=== PATIENT | female | born 1970 | race Caucasian/White ===

== ENCOUNTER 2017-01-06 19:44 | Emergency (ER) | payer SELFPAY ==
[~2017-01-06] VITALS: Ht 170.2 cm; Wt 142.0 kg
[~2017-01-06 19:44] MED LIST: AMLO5TAB22 PO; ESTRTAB6 PO
[2017-01-06 20:07] VITALS: BP 163/104; PULSE 113; RESP 18; TEMP 98.6; O2SAT 95
[2017-01-06] MEDS ORDERED: ESTRTAB11 PO (20:26)
[2017-01-06] MEDS ORDERED: AMLO5TAB2 PO (20:26)
[2017-01-06] MEDS ORDERED: METF500T PO (20:26)
--- NOTE | 2017-01-06 20:32 | PD ---
HPI Chief Complaint: Cold / Flu Symptoms Time Seen by Provider: 20:32 Travel History International Travel<30 days: No Contact w/Intl Traveler<30days: No Traveled to known affect area: No History of Present Illness HPI 46-year-old female presents with 3 day history of and increasing upper respiratory symptoms including fever, headache, postnasal drip, sore throat, and cough. Patient denies wheezing in the chest. She is sore across the chest from coughing. She states decreased appetite and mild nausea but no vomiting or diarrhea. Patient has had exposure to illness with a coworker. She states her temperature reached 101 today. She has no known drug allergies. PFSH Past Medical History Anemia: Yes Blood Disorders: No Cancer: No Cardiac Catheterization: Yes Cardiovascular Problems: Yes High Cholesterol: Yes Chest Pain: Yes Diabetes: Yes Patient Takes Glucophage: Yes (0630 01-06-17) Diminished Hearing: No Endocrine: Yes GERD: Yes Genitourinary: No Headaches: Yes Hypertension: Yes Immune Disorder: No Kidney Stones: Yes Musculoskeletal: No Neurologic: No Psychiatric: No Reproductive: Yes (INCREASED ESTROGEN LEVELS) Respiratory: No Immunizations Current: Yes Tetanus Vaccination: > 5 Years Influenza Vaccination: No ?: Not : 0 Para: 0 Miscarriage: 0 : 0 Ovarian Cysts: Yes Dilation and Curettage (D&C): Yes (ABLATION) Past Surgical History Ear Surgery: Yes Gynecologic Surgery: Yes (ENDOMETRIAL ABLATION) Tonsillectomy: Yes Tympanostomy Tube: Yes Other Surgery: Yes Social History Alcohol Use: No Tobacco Use: No Substance Use: No Allergies-Medications (Allergen,Severity, Reaction): Coded Allergies: No Known Allergies (Verified , 01/06/17) Reported Meds & Prescriptions Reported Meds & Active Scripts Active Tessalon Perles (Benzonatate) 100 Mg Cap 100 Mg PO TID PRN Flonase Allergy Relief Children Nasal Ovalo (Fluticasone Nasal Ovalo) 50 Mcg/ Act Ovalo 2 Ovalo EACH NARE DAILY 50 mcg/spray Amoxicillin 875 Mg Tab 875 Mg PO BID Reported Estroven Nighttime (Nutritional Formula) 1 Tab 1 Tab PO HS Metformin (Metformin HCl) 500 Mg Tab 500 Mg PO DAILY With a meal Amlodipine (Amlodipine Besylate) 5 Mg Tab 5 Mg PO DAILY Review of Systems Except as stated in HPI: all other systems reviewed are Neg General / Constitutional: Positive: Fever, Chills Eyes: No: Visual changes HENT: Positive: Headaches, Sore Throat, Rhinitis, Rhinorrhea, Congestion, No: Nosebleed, Neck Stiffness, Neck Pain, Dental Difficulties, Ear Discharge, Earache Cardiovascular: No: Chest Pain or Discomfort Respiratory: Positive: Cough, No: Shortness of Breath, Wheezing, Sneezing, Orthopnea, Hemoptysis, Night Sweats, Pleuritic Pain Gastrointestinal: Positive: Nausea, No: Vomiting, Diarrhea, Abdominal Pain Genitourinary: No: Dysuria Musculoskeletal: No: Pain Skin: No Rash Neurologic: No: Weakness Psychiatric: No: Depression Endocrine: No: Polydipsia Hematologic/Lymphatic: No: Easy Bruising Physical Exam Narrative GENERAL: Patient appears ill but not septic. SKIN: Warm and dry. Normal color. Normal turgor. No rash. HEAD: Atraumatic. Normocephalic. EYES: Pupils equal and round. No scleral icterus. No injection or drainage. ENT: No nasal bleeding or discharge. Mucous membranes pink and moist. Patient has moderate sinus tenderness with percussion in both frontal and maxillary sinuses. TMs are somewhat dull bilaterally with no injection. Posterior pharynx has cobblestoning and erythema with postnasal drip present NECK: Trachea midline. Supple and nontender. CARDIOVASCULAR: Regular rate and rhythm. RESPIRATORY: No accessory muscle use. Clear to auscultation. Breath sounds equal bilaterally. GASTROINTESTINAL: Abdomen soft, non-tender, nondistended. Hepatic and splenic margins not palpable. MUSCULOSKELETAL: Extremities without clubbing, cyanosis, or edema. No obvious deformities. NEUROLOGICAL: Awake and alert. No obvious cranial nerve deficits. Motor grossly within normal limits. Five out of 5 muscle strength in the arms and legs. Normal speech. PSYCHIATRIC: Appropriate mood and affect; insight and judgment normal. Data Data Last Documented VS Vital Signs Date Time Temp Pulse Resp B/P Pulse Ox O2 Delivery O2 Flow Rate FiO2 01/06/17 20:27 95 Room Air 01/06/17 20:07 98.6 113 18 163/104 Orders Amoxicillin (Trimox) (01/06/17 20:45) Ibuprofen (Motrin) (01/06/17 20:45) MDM Medical Decision Making Medical Screen Exam Complete: Yes Emergency Medical Condition: Yes Differential Diagnosis Upper respiratory infection. Febrile illness. Sinusitis. Postnasal drip. Cough. Narrative Course Patient is felt to have acute sinusitis. Patient is given amoxicillin 875 by mouth 1. Patient is given ibuprofen 800 mg by mouth. Patient will be continued on amoxicillin 875 twice a day 10 days. Patient is given Flonase nasal spray 2 sprays each nostril daily. Patient is given Tessalon Perles 100 mg one every 8 hours when necessary cough. Patient can use [id number]-doytnyl cough medications as necessary. Patient is given a work note. Patient should follow with her primary care physician or return to emergency department if symptoms do not improve or worsen as discussed. Diagnosis Primary Impression: Acute pansinusitis Qualified Code: J01.40 - Acute non-recurrent pansinusitis Referrals: Primary Care Physician Patient Instructions: General Instructions Departure Forms: Work Release Enter return to work date: Jan 08, 2017 Additional Instructions: Patient will be continued on amoxicillin 875 twice a day 10 days. Patient is given Flonase nasal spray 2 sprays each nostril daily. Patient is given Tessalon Perles 100 mg one every 8 hours when necessary cough. Patient can use [id number] cough medications as necessary. Patient is given a work note. Patient should follow with her primary care physician or return to emergency department if symptoms do not improve or worsen as discussed. Med/Other Pt SpecificInfo: Prescription(s) given Scripts Benzonatate (Tessalon Perles)100 Mg [id number] Mg PO TID PRN (COUGH) #30 CAP Ref 0 Prov:Swati Hurley MD 01/06/17 Fluticasone Nasal Ovalo (Flonase Allergy Relief Children Nasal Ovalo)50 Mcg/Act Spray2 Ovalo EACH NARE DAILY #1 BOTTLE 50 mcg/spray Prov:Swati Hurley MD 01/06/17 Amoxicillin 875 Mg [id number] Mg PO BID #20 TAB Prov:Swati Hurley MD 01/06/17 Disposition: DISCHARGE HOME Condition: Stable Von Sorto Jan 06, 2017 20:32
[2017-01-06] MEDS ORDERED: IBUPROFEN 800 MG TAB PO ONE (20:45)
[2017-01-06] MEDS ORDERED: AMOXICILLIN 875 MG TAB PO ONE (20:45)
[2017-01-06] MEDS ORDERED: BENZ100 PO (20:51)
[2017-01-06] MEDS ORDERED: AMOX875T PO (20:51)
[2017-01-06] MEDS ORDERED: FLUT1SPR9 EACH NARE (20:51)
== END 2017-01-06 20:55 | disposition home or self-care (01) ==
LOC: PHEFT 19:44
DX: J01.40 Acute pansinusitis, unspecified (principal); R51 Headache; J02.9 Acute pharyngitis, unspecified; R11.0 Nausea; E11.9 Type 2 diabetes mellitus without complications; I10 Essential (primary) hypertension
CPT/HCPCS: 99283

== ENCOUNTER 2017-03-05 18:58 | Emergency (ER) | payer SELFPAY ==
[~2017-03-05] VITALS: Ht 170.2 cm; Wt 144.0 kg
[~2017-03-05 18:58] MED LIST changes: +AMLO5TAB2 PO; -AMLO5TAB22 PO; +AMOX875T PO; +BENZ100 PO; +ESTRTAB11 PO; -ESTRTAB6 PO; +FLUT1SPR9 EACH NARE; +METF500T PO
[2017-03-05 20:02] VITALS: BP 158/96; PULSE 109; RESP 18; TEMP 99.4; O2SAT 97
[2017-03-05] MEDS ORDERED: MELA1TAB16 PO (20:12)
--- NOTE | 2017-03-05 20:58 | PD ---
HPI Chief Complaint: Skin Problem Time Seen by Provider: 20:30 Travel History International Travel<30 days: No Contact w/Intl Traveler<30days: No Traveled to known affect area: No History of Present Illness HPI 46-year-old female presents emergency department for evaluation of possible abscess left posterior thigh 3 days. She reports over the last 3 days the area has become increasingly more painful, nonradiating, worse with sitting and and movement, relieved with rest. Severity 7 out of 10. She denies fever, chills, nausea, vomiting. She reports her diabetes is well controlled with metformin. No change in blood sugars. PFSH Past Medical History Anemia: Yes Blood Disorders: No Cancer: No Cardiac Catheterization: Yes Cardiovascular Problems: Yes High Cholesterol: Yes Chest Pain: Yes Diabetes: Yes Patient Takes Glucophage: Yes Diminished Hearing: No Endocrine: Yes GERD: Yes Genitourinary: No Headaches: Yes Hypertension: Yes Immune Disorder: No Kidney Stones: Yes Musculoskeletal: No Neurologic: No Psychiatric: No Reproductive: Yes (INCREASED ESTROGEN LEVELS) Respiratory: No Immunizations Current: Yes Tetanus Vaccination: > 5 Years Influenza Vaccination: No ?: Not LMP: Ended 02/19/17 : 0 Para: 0 Miscarriage: 0 : 0 Ovarian Cysts: Yes Dilation and Curettage (D&C): Yes (Uterine ablation ) Past Surgical History Ear Surgery: Yes Gynecologic Surgery: Yes (ENDOMETRIAL ABLATION) Tonsillectomy: Yes Tympanostomy Tube: Yes Other Surgery: Yes Social History Alcohol Use: No Tobacco Use: No Substance Use: No Allergies-Medications (Allergen,Severity, Reaction): Coded Allergies: No Known Allergies (Verified , 03/05/17) Reported Meds & Prescriptions Reported Meds & Active Scripts Active Reported Estroven Nighttime 2 mg (Melatonin-Black Cohosh-Soy Iso) 1 Tab Tab 1 Tab PO HS Metformin (Metformin HCl) 500 Mg Tab 500 Mg PO DAILY With a meal Amlodipine (Amlodipine Besylate) 5 Mg Tab 5 Mg PO DAILY Review of Systems Except as stated in HPI: all other systems reviewed are Neg Skin: Positive Other (abscess left posterior thigh) Physical Exam Narrative GENERAL: Well-nourished, well-developed patient. SKIN: Focused skin assessment warm/dry. Early abscess left upper thigh HEAD: Normocephalic. EYES: No scleral icterus. No injection or drainage. NECK: Supple, trachea midline. No JVD or lymphadenopathy. CARDIOVASCULAR: Regular rate and rhythm without murmurs, gallops, or rubs. RESPIRATORY: Breath sounds equal bilaterally. No accessory muscle use. GASTROINTESTINAL: Abdomen soft, non-tender, nondistended. MUSCULOSKELETAL: No cyanosis, or edema. Left le x 3 cm area of erythema and induration with a central scab left upper thigh. No fluctuance. No drainage. No surrounding cellulitis or lymphangitis. BACK: Nontender without obvious deformity. No CVA tenderness. Data Data Last Documented VS Vital Signs Date Time Temp Pulse Resp B/P Pulse Ox O2 Delivery O2 Flow Rate FiO2 03/05/17 20:02 99.4 109 18 158/96 97 MDM Medical Decision Making Medical Screen Exam Complete: Yes Emergency Medical Condition: Yes Differential Diagnosis Abscess, cellulitis, Narrative Course 46-year-old female presents emergency department for evaluation of possible abscess left posterior thigh 3 days. Patient denies fever, chills. On exam patient is found to have a early abscess. The area is indurated without fluctuance. He does have a central scab without drainage. Do not believe I&D at this time would be beneficial. Patient be placed on antibiotics instructed to apply warm compresses follow-up for recheck in one to 2 days. Diagnosis Primary Impression: Abscess Referrals: Primary Care Physician Additional Instructions: Taking antibiotics as prescribed. Plan warm compresses to the area daily. Follow-up with her primary care doctor for recheck in one to 2 days or return to emergency department if he developed no worsening symptoms. Scripts Clindamycin 300 Mg [id number] Mg PO Q6H #40 CAP Ref 0 Prov:Tabitha Moreno 03/05/17 Disposition: 01 DISCHARGE HOME Condition: Stable Tabitha Moreno Mar 05, 2017 20:58
[2017-03-05] MEDS ORDERED: CLIN1CAP6 PO (21:08)
[2017-03-05] MEDS ORDERED: KETOROLAC TROMETHAMINE 60 MG/2 ML (IM) VIAL IM ONE (21:15)
== END 2017-03-05 21:20 | disposition home or self-care (01) ==
LOC: PHED 18:58 → PHEFT 21:20
DX: L02.416 Cutaneous abscess of left lower limb (principal); E78.00 Pure hypercholesterolemia, unspecified; D64.9 Anemia, unspecified; I10 Essential (primary) hypertension; E11.9 Type 2 diabetes mellitus without complications; K21.9 Gastro-esophageal reflux disease without esophagitis
CPT/HCPCS: 96372; 99284; J1885

== ENCOUNTER 2018-01-13 12:28 | Emergency (ER) | payer SELFPAY ==
[~2018-01-13] VITALS: Ht 170.2 cm; Wt 146.0 kg
[~2018-01-13 12:28] MED LIST changes: -AMOX875T PO; -BENZ100 PO; +CLIN300C5 PO; -ESTRTAB11 PO; -FLUT1SPR9 EACH NARE; +MELA1TAB16 PO
[2018-01-13 12:39] VITALS: BP 160/74; PULSE 91; RESP 18; TEMP 98.4; O2SAT 97
[2018-01-13] MEDS ORDERED: CLIN300C5 PO (13:25)
[2018-01-13] MEDS ORDERED: MUPI2OIN TOPICAL (13:25)
--- NOTE | 2018-01-13 13:29 | PD ---
HPI Chief Complaint: Skin Problem Time Seen by Provider: 13:04 Travel History International Travel<30 days: No Contact w/Intl Traveler<30days: No Traveled to known affect area: No History of Present Illness HPI Patient comes emergency department complaining of a burning painful rash bilateral lower extremities ongoing for 2 weeks. Patient denies any known injury. Denies anything making it better or worse. Patient reports she does not shave her legs but uses Adam but stopped doing this since the rash started. Patient denies being around anyone else with similar, fevers, weight loss, new allergen exposures, bruising, bleeding, or previous episodes like this. Denies any radiation of the pain. Severity mild. PFSH Past Medical History Anemia: Yes Blood Disorders: No Cancer: No Cardiac Catheterization: Yes Cardiovascular Problems: Yes High Cholesterol: Yes Chest Pain: Yes Diabetes: Yes Patient Takes Glucophage: Yes Diminished Hearing: No Endocrine: Yes GERD: Yes Genitourinary: No Headaches: Yes Hypertension: Yes Immune Disorder: No Kidney Stones: Yes Musculoskeletal: No Neurologic: No Psychiatric: No Reproductive: Yes (INCREASED ESTROGEN LEVELS) Respiratory: No Immunizations Current: Yes Tetanus Vaccination: > 5 Years Influenza Vaccination: No ?: Not LMP: LAST WEEK : 0 Para: 0 Miscarriage: 0 : 0 Ovarian Cysts: Yes Dilation and Curettage (D&C): Yes (Uterine ablation ) Past Surgical History Ear Surgery: Yes Gynecologic Surgery: Yes (ENDOMETRIAL ABLATION) Tonsillectomy: Yes Tympanostomy Tube: Yes Other Surgery: Yes Social History Alcohol Use: No Tobacco Use: No Substance Use: No Allergies-Medications (Allergen,Severity, Reaction): Coded Allergies: No Known Allergies (Verified Adverse Reaction, Unknown, 01/13/18) Reported Meds & Prescriptions Reported Meds & Active Scripts Active Mupirocin Topical (Mupirocin) 2 % Oint 1 Applic TOPICAL BID Clindamycin (Clindamycin HCl) 300 Mg Cap 300 Mg PO Q6H Reported Metformin (Metformin HCl) 500 Mg Tab 500 Mg PO DAILY With a meal Amlodipine (Amlodipine Besylate) 5 Mg Tab 5 Mg PO DAILY Review of Systems Except as stated in HPI: all other systems reviewed are Neg Physical Exam Narrative GENERAL: Well-developed, overly nourished, in no acute distress, and non-ill appearing. SKIN: Multiple small tiny yellowish crusted lesions noted bilateral lower extremities distal to the knee. There is no drainage, crepitus, fluctuation, or surrounding erythematous. Patient reports tenderness to palpation. Appears mild folliculitis. HEAD: Atraumatic. Normocephalic. EYES: Pupils equal and round. EOMI. No scleral icterus. No injection or drainage. ENT: No nasal bleeding or discharge. Mucous membranes pink and moist. NECK: Trachea midline. Supple. No nuclear rigidity. RESPIRATORY: No accessory muscle use. No respiratory distress. MUSCULOSKELETAL: No obvious deformities. No clubbing. No cyanosis. No edema. Full range of motion. NEUROLOGICAL: Awake and alert. No obvious cranial nerve deficits. Motor grossly within normal limits. Normal speech. PSYCHIATRIC: Appropriate mood and affect; insight and judgment normal. Data Data Last Documented VS Vital Signs Date Time Temp Pulse Resp B/P (MAP) Pulse Ox O2 Delivery O2 Flow Rate FiO2 01/13/18 12:39 98.4 91 18 160/74 (102) 97 Orders Orders Ed Discharge Order (01/13/18 13:29) MDM Medical Decision Making Medical Screen Exam Complete: Yes Emergency Medical Condition: Yes Differential Diagnosis Cellulitis, folliculitis, impetigo, scabies Narrative Course The patient looks great and was non-ill appearing. There was no evidence to suggest scabies, cellulitis, abscess, Staph. Scalded Skin Syndrome, Toxic Shock , Toxic Epidermal necrolysis, Kawasaki, Measles, Rubella, cutaneous T cell lymphoma, Erythema Multiforme (minor or major). Rash appears mild folliculitis. Skin prescription for clindamycin and topical mupirocin cream. Plan of care was discussed with the patient and the patient is to follow up with their physician. The patient agreed with plan. Patient in no obvious distress upon re-evaluation. Patient was asked if they wanted to speak to my attending, which the patient did not wish to do at this time. Any questions/concerns in reference to patient diagnosis/condition discussed and clarified prior to patient's discharge. Reinforced sheer importance of close follow up with patient's primary physician or primary care clinic and/or supervisor [employer]. Instructed patient to return to ED immediately, if symptoms return/worsen. Patient showed understanding of above instructions. Further instructions and recommendations were detailed in discharge paperwork. Patient ambulated without difficulty out of ED at discharge. Diagnosis Primary Impression: Folliculitis Referrals: [facility] Patient Instructions: Folliculitis (ED), General Instructions Additional Instructions: Follow-up with your primary care physician and/or supervisor [employer] next week for reevaluation. Take all medication as prescribed. Return to the emergency department if symptoms get worse. Med/Other Pt SpecificInfo: Prescription(s) given Scripts Mupirocin Topical (Mupirocin Topical) 2 % Oint 1 APPLIC TOPICAL BID for Mgmt Bacterial Infection, #1 TUBE 0 Refills Prov: Dacia Sullivan MD 01/13/18 Clindamycin (Clindamycin) 300 Mg Cap 300 MG PO Q6H for Infection, #40 CAP 0 Refills Prov: Dacia Sullivan MD 01/13/18 Disposition: 01 DISCHARGE HOME Condition: Stable Ashish Dinh January 13, 2018 13:29
== END 2018-01-13 13:44 | disposition home or self-care (01) ==
LOC: PHEFT 12:28
DX: L73.9 Follicular disorder, unspecified (principal); D64.9 Anemia, unspecified; E78.00 Pure hypercholesterolemia, unspecified; E11.9 Type 2 diabetes mellitus without complications; I10 Essential (primary) hypertension; K21.9 Gastro-esophageal reflux disease without esophagitis; Z87.442 Personal history of urinary calculi; Z79.899 Other long term (current) drug therapy
CPT/HCPCS: 99283

== ENCOUNTER 2018-04-28 10:10 | Observation (INO) ==
--- NOTE | 2018-04-28 11:09 | XR ---
EXAM DATE: 04/28/2018 11:05 AM EDT AGE/SEX: 47 years / Female INDICATIONS: Chest pain. CLINICAL DATA: This is the patient's initial encounter. Patient reports that signs and symptoms have been present for 1 day and indicates a pain score of 6/10. MEDICAL/SURGICAL HISTORY: Hypertension. Hypercholesterolemia. Diabetes mellitus type II. None . COMPARISON: [facility], CHEST SINGLE AP, 06/11/2016. . FINDINGS: A single AP view of the chest demonstrates the lungs to be symmetrically hypoinflated without evidenc e of mass, infiltrate or effusion. The cardiomediastinal contours are unremarkable. Osseous structu res are intact. CONCLUSION: Hypoinflation with no acute cardiopulmonary process. Electronically signed by: Gregorio Trevino MD 04/28/2018 11:08 AM EDT
--- NOTE | 2018-04-28 11:18 | ED ---
HPI General Chief Complaint: Chest Pain Stated Complaint: chest/back pain Time Seen by Provider: 04/28/18 10:49 Source: patient Mode of arrival: ambulatory Limitations: no limitations History of Present Illness HPI narrative: Patient is a 47-year-old female presenting to emerge from for evaluation of chest pain. Patient states the pain is in the middle of her chest radiating to the left, sometimes to the right and to her back. Patient reports it is pressure-like in nature, she states her pain is a 5 out of 10, pain started 2 days ago. Patient reports that she feels as if she cannot catch her breath. She also reports nausea and intermittent headache. She denies any diaphoresis, vomiting, abdominal pain, dysuria. She states that she feels weak. Symptom onset was gradual, symptoms are moderate in nature. There are no alleviating or exacerbating factors. Patient reports a medical history significant for hypertension and type 2 diabetes. Patient states her diabetes is well-controlled, her last A1c was 6.1%. Patient does not have a primary doctor, her medications are prescribed by the physician that she works for a [employer]. Patient denies any tobacco use. She states her father at 70 of congestive heart failure, she had an uncle that at 39 from a heart attack. MD complaint: chest pain Complete Quality Measures for STEMI Alert Patients STEMI Alert: No Onset (ago): day(s) (2) Duration: constant and progressively worsening Onset: during rest and during exertion Pain location: substernal, left chest and right chest Severity: moderate Severity scale (1-10): 5 Quality: heaviness Pain radiation: back Relieving factors: nothing Exacerbating factors: nothing Associated symptoms: nausea and dyspnea Treatments prior to arrival chest pain: none Related Data Home Medications Medication Instructions Recorded Confirmed amlodipine 5 mg PO DAILY 04/28/18 04/28/18 metformin 500 mg PO DAILY 04/28/18 04/28/18 Allergies Allergy/AdvReac Type Severity Reaction Status Date / Time No Known Allergies Allergy Unverified 04/28/18 10:38 Review of Systems ROS: all other systems reviewed are negative [facility] Medical History Medical History Diabetes (Acute) HTN (hypertension) (Acute) Surgical History Surgical History History of endometrial ablation (Acute) History of tonsillectomy (Acute) Social History Social History Second Hand Smoke Exposure: No Smoking Status: Never smoker How Often Do You Have a Drink Containing Alcohol: Never Recent Travel in [facility] within the Last 8 Weeks: No Recent Out of Country Travel within the Last 8 Weeks: No Immunization History Tetanus Immunization: >5 Years Hx Influenza Vaccine This Season: No Exam Narrative Exam Narrative: GENERAL: Obese, well-developed, alert female. Presenting in no acute distress. SKIN: Focused skin assessment warm/dry. Macular, crusted lesions noted to bilateral lower extremities. No induration or erythema noted. HEAD: Atraumatic. Normocephalic. EYES: Pupils equal and round. No scleral icterus. No injection or drainage. ENT: No nasal bleeding or discharge. Mucous membranes pink and moist. NECK: Trachea midline. No JVD. CARDIOVASCULAR: Regular rate and rhythm. No murmur appreciated. RESPIRATORY: No accessory muscle use. Clear to auscultation. Breath sounds equal bilaterally. GASTROINTESTINAL: Abdomen soft, non-tender, nondistended. Hepatic and splenic margins not palpable. MUSCULOSKELETAL: No obvious deformities. No clubbing. No cyanosis. No edema. NEUROLOGICAL: Awake and alert. No obvious cranial nerve deficits. Motor grossly within normal limits. Normal speech. PSYCHIATRIC: Appropriate mood and affect; insight and judgment normal. Course Initial Documented Vital Signs Temperature 98.2 F 04/28/18 10:14 Pulse Rate 108 H 04/28/18 10:14 Respiratory Rate 18 04/28/18 10:14 Blood Pressure 181/88 H 04/28/18 10:14 Pulse Oximetry 96 04/28/18 10:14 Last Documented Vital Signs Temperature 98.2 F 04/28/18 10:14 Pulse Rate 108 H 04/28/18 10:14 Respiratory Rate 18 04/28/18 10:14 Blood Pressure 181/88 H 04/28/18 10:14 Pulse Oximetry 98 04/28/18 10:51 Clinical Decision Support HEART Score Questions History: Slightly suspicious EKG: Non-specific repolarization disturbance Age: 45-64 years Risk Factors: 3 or more Risk Factors or Hx of Atherosclerotic Disease Initial Troponin: Normal Limit Heart Score HEART Score: 4 Medical Decision Making MDM Narrative Medical decision making narrative: She is an obese 27-year-old female presenting for evaluation of patient is hypertensive on arrival and mildly tachycardic. Labs imaging ordered and pending. Patient placed on telemetry monitoring continuous pulse oximetry. Initial EKG was reviewed by my attending physician. Labs reviewed, no acute findings identified including a d-dimer which was negative to rule out pulmonary embolism. Patient had a cardiac cath in 2014 which showed mild disease and recommended medical management. At this time patient will be admitted to the chest pain center for further evaluation. Plan of care discussed with my attending physician prior to admission. Differential Diagnosis Differential Diagnosis: ACS versus [place] versus pleurisy versus viral syndrome versus cholecystitis versus metabolic abnormality versus arrhythmia versus pulmonary embolism versus other Medical Records Medical records reviewed: Yes I reviewed the patient's medical records. Lab Data Lab results reviewed: Yes I reviewed the patient's lab results. Result diagrams: 04/28/18 11:00 04/28/18 11:00 Lab Results 04/28/18 04/28/18 04/28/18 Range/Units 11:00 11:00 11:00 WBC 7.8 (4.0-11.0) th/mm3 RBC 4.50 (4.00-5.30) mil/mm3 Hgb 13.0 (11.6-15.3) gm/dL Hct 37.5 (35.0-46.0) % MCV 83.3 (80.0-100.0) fL MCH 28.9 (27.0-34.0) pg MCHC 34.7 (32.0-36.0) % RDW 14.5 (11.6-17.2) % Plt Count 301 (150-450) th/mm3 MPV 9.1 (7.0-11.0) fL Neut % (Auto) 69.7 (16.0-70.0) % Lymph % (Auto) 17.3 (9.0-44.0) % [place] % (Auto) 9.7 H (0.0-8.0) % Eos % (Auto) 2.8 (0.0-4.0) % Baso % (Auto) 0.5 (0.0-2.0) % Neut # (Auto) 5.4 (1.8-7.7) th/mm3 Lymph # (Auto) 1.4 (1.0-4.8) th/mm3 [place] # (Auto) 0.8 (0.0-0.9) th/mm3 Eos # (Auto) 0.2 (0.0-0.4) th/mm3 Baso # (Auto) 0.0 (0.0-0.2) th/mm3 WBC Differential . Differential Comment Auto diff final PT 10.0 (9.8-11.6) sec INR 1.0 Ratio APTT 30.1 (24.3-30.1) sec D-Dimer Quant (PE/DVT) (0.00-0.50) mg/L FEU Sodium 137 (136-145) meq/L Potassium 3.8 (3.5-5.1) meq/L Chloride 102 (98-107) meq/L Carbon Dioxide 27.2 (21.0-32.0) meq/L Anion Gap 8 (5-15) meq/L BUN 14 (7-18) mg/dL Creatinine 0.83 (0.50-1.00) mg/dL Estimated GFR 74 L (>89) mL/min Random Glucose 100 (74-106) mg/dL Calcium 9.1 (8.5-10.1) mg/dL Total Bilirubin 0.3 (0.2-1.0) mg/dL AST 11 L (15-37) U/L ALT 14 (10-53) U/L Alkaline Phosphatase 75 (45-117) U/L Troponin I Less than 0.02 L (0.02-0.05) ng/mL Total Protein 7.5 (6.4-8.2) g/dL Albumin 3.4 (3.4-5.0) g/dL Lipase 123 (73-393) U/L 04/28/18 Range/Units 11:00 WBC (4.0-11.0) th/mm3 RBC (4.00-5.30) mil/mm3 Hgb (11.6-15.3) gm/dL Hct (35.0-46.0) % MCV (80.0-100.0) fL MCH (27.0-34.0) pg MCHC (32.0-36.0) % RDW (11.6-17.2) % Plt Count (150-450) th/mm3 MPV (7.0-11.0) fL Neut % (Auto) (16.0-70.0) % Lymph % (Auto) (9.0-44.0) % [place] % (Auto) (0.0-8.0) % Eos % (Auto) (0.0-4.0) % Baso % (Auto) (0.0-2.0) % Neut # (Auto) (1.8-7.7) th/mm3 Lymph # (Auto) (1.0-4.8) th/mm3 [place] # (Auto) (0.0-0.9) th/mm3 Eos # (Auto) (0.0-0.4) th/mm3 Baso # (Auto) (0.0-0.2) th/mm3 WBC Differential Differential Comment PT (9.8-11.6) sec INR Ratio APTT (24.3-30.1) sec D-Dimer Quant (PE/DVT) 0.39 (0.00-0.50) mg/L FEU Sodium (136-145) meq/L Potassium (3.5-5.1) meq/L Chloride (98-107) meq/L Carbon Dioxide (21.0-32.0) meq/L Anion Gap (5-15) meq/L BUN (7-18) mg/dL Creatinine (0.50-1.00) mg/dL Estimated GFR (>89) mL/min Random Glucose (74-106) mg/dL Calcium (8.5-10.1) mg/dL Total Bilirubin (0.2-1.0) mg/dL AST (15-37) U/L ALT (10-53) U/L Alkaline Phosphatase (45-117) U/L Troponin I (0.02-0.05) ng/mL Total Protein (6.4-8.2) g/dL Albumin (3.4-5.0) g/dL Lipase (73-393) U/L Imaging Data Radiologist's impression: Chest X-Ray 04/28/18 10:46 CONCLUSION: Hypoinflation with no acute cardiopulmonary process. Discharge Plan Discharge Disposition Patient Disposition: 30 Still Patient Discharge Condition Condition: Stable Discharge Details Diagnosis: Atypical chest pain Physicians Team ED Provider: Khang Medina ED Midlevel Provider: Michelle Vang Primary Care Provider: Primary Care Physici,No Rxs /Orders / Referrals /Forms Prescriptions: No Action amlodipine 5 mg Tablet 5 mg PO DAILY RF: 0 metformin 500 mg Tablet Extended Release 24 Hr 500 mg PO DAILY RF: 0 Discharge Instructions Patient Printed Instructions: Chest Pain (ED) Discharge Interventions Interventions: Vital Signs Last Done: 04/28/18 10:14 Status ED Status: Admitted Observation Patient
[2018-04-28 11:47] LABS: Baso % (Auto) 0.5 % (0.0-2.0); Eos # (Auto) 0.2 th/mm3 (0.0-0.4); Eos % (Auto) 2.8 % (0.0-4.0); Hematocrit 37.5 % (35.0-46.0); Lymph # (Auto) 1.4 th/mm3 (1.0-4.8); Lymph % (Auto) 17.3 % (9.0-44.0); Mean Corpuscular HGB Conc 34.7 % (32.0-36.0); Mean Corpuscular Hemoglobin 28.9 pg (27.0-34.0); Mean Corpuscular Volume 83.3 fL (80.0-100.0); Mean Platelet Volume 9.1 fL (7.0-11.0); Mono # (Auto) 0.8 th/mm3 (0.0-0.9); Mono % (Auto) 9.7 % (0.0-8.0); Neut # (Auto) 5.4 th/mm3 (1.8-7.7); Neut % (Auto) 69.7 % (16.0-70.0); Platelet Count 301 th/mm3 (150-450); Red Cell Distribution Width 14.5 % (11.6-17.2); White Blood Count 7.8 th/mm3 (4.0-11.0)
[2018-04-28 12:02] LABS: Activated Partial Thrombo Time 30.1 sec (24.3-30.1)
[2018-04-28 12:18] LABS: Alanine Aminotransferase 14 U/L (10-53); Albumin 3.4 g/dL (3.4-5.0); Anion Gap 8 meq/L (5-15); Aspartate Aminotransferase 11 U/L (15-37); Blood Urea Nitrogen 14 mg/dL (7-18); Calcium 9.1 mg/dL (8.5-10.1); Carbon Dioxide 27.2 meq/L (21.0-32.0); Chloride 102 meq/L (98-107); Glomerular Filtration Rate 74 mL/min (>89); Glucose,Random 100 mg/dL (74-106); Lipase 123 U/L (73-393); Potassium 3.8 meq/L (3.5-5.1); Sodium 137 meq/L (136-145)
[2018-04-28 12:21] LABS: Alkaline Phosphatase 75 U/L (45-117); Total Protein 7.5 g/dL (6.4-8.2)
[2018-04-28] MEDS ORDERED: ALPRAZolam 0.25 MG Tablet PO PRN (14:43)
[2018-04-28] MEDS ORDERED: Acetaminophen 500 MG Tablet PO PRN (14:46)
--- NOTE | 2018-04-28 15:17 | P.HPCA ---
History of Present Illness Primary Care Physician: No Primary Care Physician Chief Complaint: Chest pain History of Present Illness: This is a 47-year-old female with stated history of hypertension, hyperlipidemia , diabetes that presents to ED to be evaluated for chest discomfort. Patient states that she has had a constant pressure in center/left side of her chest for 2 days. Worsened with certain movements and walking. She has not been short of breath but felt that has been hard to take in a deep breath. Denies nausea or diaphoresis. Patient states she has had similar episode in the past and had a cardiac workup including a heart catheterization which she states she was told was normal and also had a normal stress test in 2016. Upon reviewing records she had a heart catheterization by Dr. Forde in 2013 revealing of 20 % proximal RCA lesion which Dr. Forde thought also could be related to spasm versus de tracy lesion and medical management was to be optimized. Has not followed with cardiology since. Was told that her LDL is a little bit elevated but has not started statin therapy. Denies recent illness. Denies . Patient is a non-smoker. States that her father had age 70 of congestive heart failure but she was not aware of having a history of myocardial infarction, CABG, or stenting. - Diagnosis (1) Chest pain (2) Hypertension (3) Diabetes (4) Hyperlipidemia Review of Systems General: Patient denies fevers, chills, and recent travel. HEENT: Patient denies headache, sore throat, difficulty swallowing. Cardiovascular: Has the chest discomfort as mentioned above. Denies sensation of heart beating rapidly or irregularly. No syncope. Denies diaphoresis. Respiratory: Denies shortness of breath or inspirational chest discomfort. Denies coughing wheezing or hemoptysis. GI: Patient denies nausea, vomiting, diarrhea, abdominal pain, bloody stools. Musculoskeletal: Patient denies joint pain or edema. Denies calf pain or edema. Neurovascular: Patient denies numbness, tingling, weakness in extremities. Denies headache. Endocrine: Denies polyuria and polydipsia. Hematologic: Denies easy bruising. Skin: Denies rash or itching. PMFSH - History History Provided By: Patient - Medical History Medical History: Medical History (Last Reviewed 04/28/18 @ 11:17 by ITALO Torres) Diabetes HTN (hypertension) - Surgical History Surgical History: Surgical History (Last Reviewed 04/28/18 @ 11:17 by ITALO Torres) History of endometrial ablation History of tonsillectomy - Tobacco History Second Hand Smoke Exposure: No Smoking Status: Never smoker - Alcohol History How Often Do You Have a Drink Containing Alcohol: Never - Travel History Recent Travel in the [place] Within the Last 8 Weeks: No Recent Travel Out of the Country Within the Last 8 Weeks: No - Immunization History Tetanus Immunization: >5 Years Hx Influenza Vaccine This Season: No Medications and Allergies Active Medications: Active Medications Acetaminophen (Tylenol) 500 mg PO Q6H PRN PRN Reason: pain scale 1-5 Hydrocodone Bitart/Acetaminophen (Perkins 7.5/325) 1 tab PO Q6H PRN PRN Reason: pain scale 6-10 Albuterol (Duoneb Neb (Prn)) 1 ampul NEB Q4HR NEB PRN PRN Reason: SHORTNESS OF BREATH/WHEEZING Alprazolam (Xanax) 0.25 mg PO Q8H PRN PRN Reason: ANXIETY Amlodipine Besylate (Norvasc) 5 mg PO DAILY MOUNIKA Aspirin (Aspirin) 325 mg PO DAILY MOUNIKA Clonidine HCl (Catapres) 0.1 mg PO Q6H PRN PRN Reason: SBP >165 OR DBP > 110 Insulin Human Regular (Novolin R Correctional Sugar Inj) 0 units SQ ACHS MOUNIKA; Protocol Ondansetron HCl (Zofran Inj) 4 mg IV.PUSH Q6H PRN PRN Reason: NAUSEA Pantoprazole Sodium (Protonix) 40 mg PO DAILY [facility] Sodium Chloride (Ns Flush) 2 ml IV.FLUSH BID MOUNIKA Sodium Chloride (Ns Flush) 2 ml IV.FLUSH PRN PRN PRN Reason: FLUSH AFTER USING IV ACCESS Allergies Allergy/AdvReac Type Severity Reaction Status Date / Time No Known Allergies Allergy Unverified 04/28/18 10:38 Home Medications Medication Instructions Recorded Confirmed Type amlodipine 5 mg PO DAILY 04/28/18 04/28/18 History metformin 500 mg PO DAILY 04/28/18 04/28/18 History Exam Vital signs: Vital Signs 04/28/18 10:14 04/28/18 10:51 04/28/18 11:00 Temperature 98.2 F Pulse Rate 108 H 96 H Respiratory Rate 18 19 Blood Pressure 181/88 H 135/68 Pulse Oximetry 96 98 04/28/18 12:00 04/28/18 13:00 04/28/18 15:05 Temperature Pulse Rate 94 H 100 H 100 H Respiratory Rate 16 19 19 Blood Pressure 140/67 140/65 133/64 Pulse Oximetry 99 100 98 Intake & Output 04/27/18 04/28/18 04/28/18 18:59 06:59 18:59 Weight 141.974 kg Narrative: GENERAL: This is a well-nourished, well-developed patient, in no apparent distress. Patient speaks in clear complete sentences. Patient is pleasant. HEENT: Head is atraumatic and normocephalic. Neck is supple without lymphadenopathy and trachea is midline. No JVD or carotid bruits. CARDIOVASCULAR: Regular rate and rhythm without murmurs, gallops, or rubs. RESPIRATORY: Clear to auscultation. Breath sounds equal bilaterally. No wheezes , rales, or rhonchi. Chest wall is nontender. No use of accessory muscles. GASTROINTESTINAL: Abdomen is nontender, nondistended. Abdomen soft. No obvious pulsatile mass or bruit. No CVA tenderness. Strong femoral pulses bilaterally. Normal bowel sounds in all quadrants. MUSCULOSKELETAL: Patient is moving upper and lower extremities freely. No calf tenderness or edema, no Homans sign. Strong pulses in upper and lower extremities. NEUROLOGICAL: Patient is alert and oriented. Cranial nerves 2-12 are grossly intact. No focal deficits and speech is clear. SKIN: No rash and turgor is normal. Results 04/28/18 11:00 04/28/18 11:00 Cardiac Enzymes 04/28/18 Range/Units 11:00 AST 11 L (15-37) U/L Troponin I Less than 0.02 L (0.02-0.05) ng/mL Coagulation 04/28/18 Range/Units 11:00 PT 10.0 (9.8-11.6) sec APTT 30.1 (24.3-30.1) sec CBC 04/28/18 Range/Units 11:00 WBC 7.8 (4.0-11.0) th/mm3 RBC 4.50 (4.00-5.30) mil/mm3 Hgb 13.0 (11.6-15.3) gm/dL Hct 37.5 (35.0-46.0) % Plt Count 301 (150-450) th/mm3 Neut # (Auto) 5.4 (1.8-7.7) th/mm3 Lymph # (Auto) 1.4 (1.0-4.8) th/mm3 [place] # (Auto) 0.8 (0.0-0.9) th/mm3 Eos # (Auto) 0.2 (0.0-0.4) th/mm3 Baso # (Auto) 0.0 (0.0-0.2) th/mm3 Comprehensive Metabolic Panel 04/28/18 Range/Units 11:00 Sodium 137 (136-145) meq/L Potassium 3.8 (3.5-5.1) meq/L Chloride 102 (98-107) meq/L Carbon Dioxide 27.2 (21.0-32.0) meq/L BUN 14 (7-18) mg/dL Creatinine 0.83 (0.50-1.00) mg/dL Calcium 9.1 (8.5-10.1) mg/dL AST 11 L (15-37) U/L ALT 14 (10-53) U/L Alkaline Phosphatase 75 (45-117) U/L Total Protein 7.5 (6.4-8.2) g/dL Albumin 3.4 (3.4-5.0) g/dL Intake and Output 04/28/18 04/28/18 04/28/18 06:59 14:59 22:59 Other: Weight 141.974 kg Patient Weight 04/29/18 06:59 Weight 141.974 kg EKG interpretations - EKG EKG shows: sinus rhythm (Initial EKG is sinus rhythm without significant ST segment depressions or elevations.) Caprini VTE Risk Assessment Caprini VTE Risk Assessment: No/Low Risk (score <= 1) Caprini Risk Assessment Model: Point Value = 1 Point Value = 2 Point Value = 3 Point Value = 5 Age 41-60 Minor surgery BMI > 25 kg/m2 Swollen legs Varicose veins or History of unexplained or recurrent spontaneous Oral contraceptives or hormone replacement Sepsis (< 1 month) Serious lung disease, including pneumonia (< 1 month) Abnormal pulmonary function Acute myocardial infarction Congestive heart failure (< 1 month) History of inflammatory bowel disease Medical patient at bed rest Age 61-74 Arthroscopic surgery Major open surgery (> 45 min) Laparoscopic surgery (> 45 min) Malignancy Confined to bed (> 72 hours) Immobilizing plaster cast Central venous access Age >= 75 History of VTE Family history of VTE Factor V Leiden Prothrombin [id number] Lupus anticoagulant Anticardiolipin antibodies Elevated serum homocysteine Heparin-induced thrombocytopenia Other congenital or acquired thrombophilia Stroke (< 1 month) Elective arthroplasty Hip, pelvis, or leg fracture Acute spinal cord injury (< 1 month) Prophylaxis Regimen: Total Risk Factor Score Risk Level Prophylaxis Regimen 0-1 Low Early ambulation 2 Moderate Order ONE of the following: *Sequential Compression Device (SCD) *Heparin 5000 units SQ BID 3-4 Higher Order ONE of the following medications: *Heparin 5000 units SQ TID *Enoxaparin/Lovenox 40 mg SQ daily (WT < 150 kg, CrCl > 30 mL/min) *Enoxaparin/Lovenox 30 mg SQ daily (WT < 150 kg, CrCl > 10-29 mL/min) *Enoxaparin/Lovenox 30 mg SQ BID (WT < 150 kg, CrCl > 30 mL/min) AND/OR *Sequential Compression Device (SCD) 5 or more Highest Order ONE of the following medications: *Heparin 5000 units SQ TID (Preferred with Epidurals) *Enoxaparin/Lovenox 40 mg SQ daily (WT < 150 kg, CrCl > 30 mL/min) *Enoxaparin/Lovenox 30 mg SQ daily (WT < 150 kg, CrCl > 10-29 mL/min) *Enoxaparin/Lovenox 30 mg SQ BID (WT < 150 kg, CrCl > 30 mL/min) AND *Sequential Compression Device (SCD) Assessment and Plan - Assessment (1) Chest pain Code(s): R07.9 - Chest pain, unspecified Status: Acute (2) Hypertension Code(s): I10 - Essential (primary) hypertension Status: Acute (3) Diabetes Code(s): E11.9 - Type 2 diabetes mellitus without complications Status: Acute (4) Hyperlipidemia Code(s): E78.5 - Hyperlipidemia, unspecified Status: Acute - Plan * Chest pain: Patient will continue to have serial cardiac enzymes and EKGs for ruling out purposes. She will be seen by Dr. Santa of cardiology in the chest pain center. At that time further plan will be decided. Patient will be instructed to follow-up with PCP at discharge. * Hypertension: Continue medications. * Hyperlipidemia: She states she has elevated LDL. Patient was educated on the forms of statin therapy with that history as well as having diabetes. She has been advised to discuss this with her PCP as she should be on statin therapy unless contraindicated. She voices understanding of this. * Diabetes: We will hold metformin at this time, will cover with sliding scale insulin coverage. Resume medication after discharge unless she has a contrast study during this hospitalization and at which point she would have to hold metformin for 48 hours. Follow diabetic diet. Patient is agreeable to this plan. She is stable at this time.
[2018-04-28 15:53] LABS: Creatine Kinase 29 U/L (26-192)
--- NOTE | 2018-04-28 16:16 | ECG ---
Date Performed: 04/28/2018 Time Performed: 10:35:26 PTAGE: 47 years EKG: Sinus rhythm MINIMAL VOLTAGE CRITERIA FOR LVH, CONSIDER NORMAL VARIANT BORDERLINE ECG Since PREVIOUS TRACING , no significant change noted PREVIOUS TRACIN06/11/2016 21.24 DOCTOR: Katharina Santa Interpretating Date/Time 04/28/2018 16:13:57
[2018-04-28] MEDS: Insulin NovoLIN Regular Correctional Sugar Inj SQ SCH ×2 (16:54→22:45)
[2018-04-28 20:27] LABS: Creatine Kinase 32 U/L (26-192)
[2018-04-29 04:33] VITALS: RESP 18
[2018-04-29] MEDS: Insulin NovoLIN Regular Correctional Sugar Inj SQ SCH ×2 (08:14→13:15)
[2018-04-29] MEDS ORDERED: Aspirin 325 MG Tablet PO SCH (09:00)
[2018-04-29] MEDS ORDERED: amLODIPine 5 MG Tablet PO SCH (09:00)
[2018-04-29] MEDS ORDERED: Regadenoson Inj 0.4 MG/5 ML Syringe IV.PUSH ONE (09:54)
--- NOTE | 2018-04-29 11:33 | ECG ---
Date Performed: 04/28/2018 Time Performed: 15:06:32 PTAGE: 47 years EKG: Sinus rhythm NORMAL ECG NO PREVIOUS TRACING DOCTOR: Gilberto Espinal Interpretating Date/Time 04/30/2018 06:33:07
--- NOTE | 2018-04-29 11:33 | ECG ---
Date Performed: 04/28/2018 Time Performed: 18:14:02 PTAGE: 47 years EKG: Sinus rhythm LOW QRS VOLTAGE IN PRECORDIAL LEADS MINIMAL VOLTAGE CRITERIA FOR LVH, CONSIDER NORMAL VARIANT BORDER LINE ECG PREVIOUS TRACING : 04/28/2018 10.35 Since previous tracing, no significant change noted DOCTOR: Gilberto Espinal Interpretating Date/Time 04/29/2018 11:31:09
--- NOTE | 2018-04-29 11:33 | ECG ---
Date Performed: 04/28/2018 Time Performed: 22:24:15 PTAGE: 47 years EKG: Sinus rhythm NORMAL ECG PREVIOUS TRACING : 04/28/2018 18.14 Since previous tracing, no significant change noted DOCTOR: Gilberto Espinal Interpretating Date/Time 04/29/2018 11:30:58
--- NOTE | 2018-04-29 11:34 | TR ---
Date Performed: 04/29/2018 Time Performed: 09:55:18 DOCTOR: Gilberto Espinal DRUG LIST: CLINICAL HISTORY: REASON FOR TEST: REASON FOR ENDING: OBSERVATION: CONCLUSION: COMMENTS: Lexiscan stress test was performed under standard four minute protocol. Radionuclide was injected one minute prior to ending the test. No electrocardiographic abormalities were present t o suggest ischemia. Nuclear imaging and interpretation are pending.
--- NOTE | 2018-04-29 12:04 | NM ---
EXAM DATE: 04/29/2018 11:43 AM EDT AGE/SEX: 47 years / Female INDICATIONS:Angina. . Left sided chest pain for two days. CLINICAL DATA: This is the patient's subsequent encounter. Patient reports that signs and symptoms h ave been present for 2 days and indicates a pain score of 7/10. MEDICAL/SURGICAL HISTORY: Diabetes mellitus type II. Hypertension. Tonsillectomy. COMPARISON: [facility], MYOCARDIAL PERF PHARM SPECT, 06/12/2016. . No external comparison. DOSE: 11 mCi Tc 99m Myoview at rest 35 mCi [id number] at stress 0.4 mg Lexiscan STRESS SYMPTOMS: Dyspnea, neck pain, chest discomfort and headache. EJECTION FRACTION: 60 % TECHNIQUE: The patient underwent pharmacologic stress with infusion of prescribed dose. Continuous ECG tracing was monitored during stress. Gated SPECT imaging was performed after stress and conventi onal SPECT imaging was performed at rest. The examination was performed on a SPECT/CT scanner, both attenuation and non-corrected datasets were reviewed. FINDINGS: Distribution: The maximum perfused segment at stress is in the anterolateral wall. Perfusion Study: The pattern of perfusion at stress is within normal limits. Gated Study: There are intact wall motion and wall thickening without hypokinetic or dyskinetic segm ents. The ejection fraction is calculated at 60%. RISK CATEGORY: Low (<1% Annual Motality Rate) CONCLUSION: Negative examination. Electronically signed by: Tee Harepr MD 04/29/2018 12:02 PM EDT
[2018-04-29 13:39] VITALS: BP 134/89; PULSE 103; TEMP 98.8; O2SAT 96
== END 2018-04-29 14:34 | disposition home or self-care (01) ==
LOC: NEPHCDU 10:10 → NEPE 10:10 → NEDA 10:10 → NEPHCDU 15:17
PROVIDERS: ADMIT Internal Medicine Interventional Cardiology; ATTEND Internal Medicine Interventional Cardiology